=== PATIENT | female | born 1980 ===

== ENCOUNTER 2016-07-28 22:50 | Emergency (ER) | payer MEDICAID ==
[2016-07-28 22:55] VITALS: BMI 20.9
[2016-07-28 22:58] VITALS: TEMP 98.4
--- NOTE | 2016-07-28 23:12 | ED PDOC ---
Arrival/HPI - General Chief Complaint: Seizure Time Seen by Provider: 07/28/16 23:01 Historian: Patient - History of Present Illness Narrative History of Present Illness (Text): 07/28/16 23:12 Adriana Fan is a 35 year old female, whose past medical history includes anxiety, depression, and seizure, who presents to the Emergency department brought in by EMS accompanied by partner status post witnessed seizure tonight. Partner states patient was at home watching videos on the computer when she began shaking, foaming at the mouth, and her eyes rolled back. Patient is unable to recall the incident. Partner notes patient may be withdrawing from Klonopin, states patient has been taking Klonopin regularly for 10 years and has not had any in 4 days. Patient denies any chest pain, shortness of breath, headache, dizziness, fever, chills, abdominal pain, nausea, vomiting, diarrhea, head trauma, or any other complaints. Time/Duration: Other (tonight) Symptom Onset: Sudden Symptom Course: Unchanged Activities at Onset: Rest, Light Context: Home Past Medical History - Provider Review Nursing Documentation Reviewed: Yes - Neurological Hx Seizures: Yes - Psychiatric Hx Substance Use: No - Anesthesia Hx Anesthesia: No Hx Anesthesia Reactions: No Hx Malignant Hyperthermia: No Family/Social History - Physician Review Nursing Documentation Reviewed: Yes Family/Social History: No Known Family HX Smoking Status: Heavy Smoker > 10 Cigarettes Daily Hx Alcohol Use: No Hx Substance Use: No Allergies/Home Meds Allergies/Adverse Reactions: Allergies soy Adverse Reaction (Verified 07/28/16 22:58) ANGIOEDEMA Review of Systems - Physician Review All systems were reviewed & negative as marked: Yes - Review of Systems Constitutional: Normal. absent: Fevers Eyes: Normal ENT: Normal Respiratory: Normal. absent: SOB, Cough Cardiovascular: Normal. absent: Chest Pain Gastrointestinal: Normal. absent: Abdominal Pain, Diarrhea, Nausea, Vomiting Genitourinary Female: Normal. absent: Dysuria, Frequency, Hematuria, Urine Output Changes Musculoskeletal: Normal. absent: Back Pain, Neck Pain Skin: Normal. absent: Rash Neurological: Seizure. absent: Headache, Dizziness Endocrine: Normal Hemo/Lymphatic: Normal Psychiatric: Normal Physical Exam Vital Signs Reviewed: Yes Vital Signs Temp Pulse Resp BP Pulse Ox 07/29/16 02:47 79 16 120/67 100 07/29/16 00:34 74 16 99 07/28/16 22:55 98.4 F 93 H 17 139/96 H 96 Temperature: Afebrile Blood Pressure: Normal Pulse: Regular Respiratory Rate: Normal Appearance: Positive for: Well-Appearing, Non-Toxic, Comfortable Pain Distress: None Mental Status: Positive for: Alert and Oriented X 3 - Systems Exam Head: Present: Atraumatic, Normocephalic Pupils: Present: PERRL Extroacular Muscles: Present: EOMI Conjunctiva: Present: Normal Mouth: Present: Moist Mucous Membranes Neck: Present: Normal Range of Motion Respiratory/Chest: Present: Clear to Auscultation, Good Air Exchange. No: Respiratory Distress, Accessory Muscle Use Cardiovascular: Present: Regular Rate and Rhythm, Normal S1, S2. No: Murmurs Abdomen: Present: Normal Bowel Sounds. No: Tenderness, Distention, Peritoneal Signs Back: Present: Normal Inspection Upper Extremity: Present: Normal Inspection. No: Cyanosis, Edema Lower Extremity: Present: Normal Inspection. No: Edema Neurological: Present: GCS=15, CN II-XII Intact, Speech Normal, Motor Func Grossly Intact, Normal Sensory Function, Normal Cerebellar Funct, Memory Normal Skin: Present: Warm, Dry, Normal Color. No: Rashes Psychiatric: Present: Alert, Oriented x 3, Normal Insight, Normal Concentration Medical Decision Making ED Course and Treatment: 07/28/16 23:12 Impression: 35 year old female presents s/p seizure tonight. Differential Diagnosis include but are not limited to: seizure Plan: -- CT Head w/o contrast -- EKG -- Labs -- Ativan -- Reassess and disposition Progress Notes: 07/29/16 00:33 Reviewed EKG, NSR at 64 bpm. Incomplete RBBB. 07/29/16 02:04 Reviewed radiology, CT Head shows: Atrophy is substantially greater than typical for age, clinical correlation. No abnormality suspicious for acute stroke and no mass lesion by noncontrast head CT. If there is clinical suspicion for stroke or mass lesion or other type of seizure focus, please note that other modalities are considered to be more sensitive than noncontrast head CT 07/29/16 02:34 Discussed results and plan with pt. Pt was offered hospital admission for further evaluation. Pt states she would prefer to follow-up with her own doctor tomorrow morning. Pt will sign out AMA. Patient is choosing to leave against medical advice. I have personally explained to the patient that choosing to do so may result in permanent bodily harm or . I have discussed at great length that without further evaluation and monitoring there may be unforeseen circumstances and/or deterioration causing permanent bodily harm or as a result of their choice. The patient is alert, oriented, and shows the mental capacity to make clear decisions regarding the patients health care at this time. The patient continues to wish to leave against medical advice. The patient has been advised that they should return to the emergency room immediately if they change their mind at any time, or if their condition begins to change or worsen in any way. - Lab Interpretations Lab Results: 07/28/16 23:34 07/28/16 23:34 Lab Results 07/28/16 23:34: WBC 8.7, RBC 4.35, Hgb 14.6, Hct 41.4, MCV 95.2, MCH 33.6, MCHC 35.3, RDW 13.2, Plt Count 250, MPV 10.2, Sodium 141, Potassium 3.7, Chloride 105 , Carbon Dioxide 19 L, Anion Gap 21 H, BUN 17, Creatinine 0.8, Est GFR ( Amer) > 60, Est GFR (Non-Af Amer) > 60, Random Glucose 113 H, Calcium 9.6, Total Bilirubin 0.5, AST 37, ALT 159 H, Alkaline Phosphatase 61, Total Protein 8.2, Albumin 4.7, Globulin 3.5, Albumin/Globulin Ratio 1.3 I have reviewed the lab results: Yes - RAD Interpretation Narrative RAD Interpretations (Text): CT Head shows: Brain: Ventricles appear concordant with sulci. Noting that only axial images are presented, there is no finding to suggest intracranial hemorrhage. Hoffman-white matter differentiation is well-maintained. There is no evidence of mass effect or midline shift. There is atrophy which is greater than typical for age and correlation is recommended. No edema. Ventricles: See above. Bones/joints: No fractures are seen. Soft tissues: Unremarkable. Sinuses: Paranasal sinuses appear clear. Mastoid air cells: Unremarkable as visualized. No mastoid effusion. Other findings: IMPRESSION: Atrophy is substantially greater than typical for age, clinical correlation. No abnormality suspicious for acute stroke and no mass lesion by noncontrast head CT. If there is clinical suspicion for stroke or mass lesion or other type of seizure focus, please note that other modalities are considered to be more sensitive than noncontrast head CT Radiology Orders: 07/29/16 00:33 HEAD W/O CONTRAST [CT] Stat Machine Driller: Radiologist - EKG Interpretation Interpreted by ED Physician: Yes Type: 12 lead EKG - Medication Orders Current Medication Orders: Discontinued Medications Clonazepam (Klonopin) 1 mg PO STAT STA PRN Reason: Protocol Stop: 07/28/16 23:47 Last Admin: 07/29/16 00:43 Dose: 1 MG Behavioural Document 07/29/16 00:43 EKEOO (Rec: 07/29/16 00:44 EKEOO [id number]) Maintenance Maintenance Dose Yes Clonazepam (Klonopin) 1 mg PO STAT STA PRN Reason: Protocol Stop: 07/29/16 02:38 Last Admin: 07/29/16 02:39 Dose: 1 MG Behavioural Document 07/29/16 02:39 EKEOO (Rec: 07/29/16 02:40 EKEOO [id number] ATTEND) Maintenance Maintenance Dose Yes Lorazepam (Ativan) 1 mg IVP ONCE ONE PRN Reason: Protocol Stop: 07/28/16 23:14 Last Admin: 07/28/16 23:27 Dose: 1 MG Behavioural Document 07/28/16 23:27 R (Rec: 07/28/16 23:28 [facility] [id number]) Maintenance Maintenance Dose No Nonmedicinal Nonmedicinal Interventions See nurse's notes Behavior Behavior for Medication: Anxiety IVP Administration Document 07/28/16 23:27 R (Rec: 07/28/16 23:28 R [id number]) Charges for Administration # of IVP Administrations 1 - Scribe Statement The provider has reviewed the documentation as recorded by the Karen Chong Provider Attestation: All medical record entries made by the Karen were at my direction and personally dictated by me. I have reviewed the chart and agree that the record accurately reflects my personal performance of the history, physical exam, medical decision making, and the department course for this patient. I have also personally directed, reviewed, and agree with the discharge instructions and disposition. Disposition/Present on Arrival - Present on Arrival Any Indicators Present on Arrival: No History of DVT/PE: No History of Uncontrolled Diabetes: No Urinary Catheter: No History of Decub. Ulcer: No History Surgical Site Infection Following: None - Disposition Have Diagnosis and Disposition been Completed?: Yes Diagnosis: New onset seizure Disposition: AGAINST MEDICAL ADVICE Disposition Time: 03:00 Condition: STABLE
[2016-07-28 23:52] LABS: HEMATOCRIT 41.4 % (36.0-48.0); MEAN CELL VOLUME 95.2 fL (80.0-105.0); MEAN CORPUSCULAR HEMOGLOBIN 33.6 pg (25.0-35.0); MEAN CORPUSCULAR HGB CONC 35.3 g/dl (31.0-37.0); MEAN PLATELET VOLUME 10.2 fl (7.0-11.0); RED CELL DISTRIBUTION WIDTH 13.2 % (11.5-14.5); WHITE BLOOD COUNT 8.7 10^3/ul (4.5-11.0)
[2016-07-29] LABS: ALB/GLOB RATIO 1.3 (1.1-1.8); ALKALINE PHOSPHATASE 61 U/L (38-133); ALT/SGPT 159 U/L (7-56); AST/SGOT 37 U/L (15-39); BILIRUBIN,TOTAL 0.5 mg/dL (0.2-1.3); BLOOD UREA NITROGEN 17 mg/dL (7-21); CALCIUM 9.6 mg/dL (8.4-10.5); CARBON DIOXIDE 19 mmol/L (21-33); CHLORIDE 105 mmol/L (98-107); GFR AFRICAN-AMERICAN > 60; GLUCOSE,RANDOM 113 mg/dL (70-110); POTASSIUM 3.7 mmol/L (3.6-5.0); SODIUM 141 mmol/L (132-148); TOTAL PROTEIN 8.2 g/dL (5.8-8.3)
[2016-07-29 00:34] VITALS: RESP 16
--- NOTE | 2016-07-29 02:03 | CT ---
EXAM: CT Head Without Intravenous Contrast CLINICAL HISTORY: 35 years old, female; Signs and symptoms; Other: Seizure TECHNIQUE: Axial computed tomography images of the head/brain without intravenous contrast. EXAM DATE/TIME: Exam ordered 07/29/2016 12:33 AM COMPARISON: No relevant prior studies available. FINDINGS: Brain: Ventricles appear concordant with sulci. Noting that only axial images are presented, there is no finding to suggest intracranial hemorrhage. Hoffman-white matter differentiation is well-maintained. There is no evidence of mass effect or midline shift. There is atrophy which is greater than typical for age and correlation is recommended. No edema. Ventricles: See above. Bones/joints: No fractures are seen. Soft tissues: Unremarkable. Sinuses: Paranasal sinuses appear clear. Mastoid air cells: Unremarkable as visualized. No mastoid effusion. Other findings: IMPRESSION: Atrophy is substantially greater than typical for age, clinical correlation. No abnormality suspicious for acute stroke and no mass lesion by noncontrast head CT. If there is clinical suspicion for stroke or mass lesion or other type of seizure focus, please note that other modalities are considered to be more sensitive than noncontrast head CT. If there have been previous studies, comparison is recommended, no previous imaging or previous reports available at time of this dictation.
[2016-07-29 02:47] VITALS: BP 120/67; PULSE 79; O2SAT 100
--- NOTE | 2016-07-29 18:01 | CARD ---
APPROVED REPORT EKG Measurement Heart [id number] RI [id number] <Conclusion> Sinus rhythm with short RI Incomplete right bundle branch block Borderline ECG
== END 2016-07-29 02:55 | disposition left against medical advice (07) ==
LOC: MERGE 22:50 → ED 22:50
DX: R56.9 Unspecified convulsions (principal); F17.210 Nicotine dependence, cigarettes, uncomplicated
CPT/HCPCS: 70450; 80053; 85027; 93005; 96374; 99285; J2060

== ENCOUNTER 2016-08-23 13:02 | Emergency (ER) | payer MEDICAID ==
[2016-08-23 13:02] VITALS: BMI 20.9
--- NOTE | 2016-08-23 13:26 | ED PDOC ---
Arrival/HPI - General Chief Complaint: Finger,Hand,&Wrist Time Seen by Provider: 08/23/16 13:21 Historian: Patient - History of Present Illness Narrative History of Present Illness (Text): 08/23/16 13:22 35 year old female, pmh including seizure, nkda, complaining of rt. hand 1st digit thumb pain x 1 hour. Pt. stated that she was trying to close the trunk door, hyperextended the thumb, been having pain, no numbness or tingling, no dizziness, no night sweat, no other medical or psychological complaints. Past Medical History - Provider Review Nursing Documentation Reviewed: Yes - Cardiac Hx Cardiac Disorders: No Hx Hypertension: Yes - Pulmonary Hx Asthma: Yes - Neurological Hx Seizures: Yes - Renal Hx Renal Disorder: No - Endocrine/Metabolic Hx Endocrine Disorders: No - Hematological/Oncological Hx Blood Disorders: No - Integumentary Hx Dermatological Disorder: No - Musculoskeletal/Rheumatological Hx Musculoskeletal Disorders: No - Gastrointestinal Hx Gastrointestinal Disorders: No - Genitourinary/Gynecological Other/Comment: PCOS - Psychiatric Hx Anxiety: Yes Hx Bipolar Disorder: Yes Hx Depression: Yes Hx Substance Use: No - Surgical History Other/Comment: NECK, R KNEE - Anesthesia Hx Anesthesia: No Hx Anesthesia Reactions: No Hx Malignant Hyperthermia: No Family/Social History - Physician Review Nursing Documentation Reviewed: Yes Family/Social History: Unknown Family HX Smoking Status: Heavy Smoker > 10 Cigarettes Daily Hx Alcohol Use: No Hx Substance Use: No Allergies/Home Meds Allergies/Adverse Reactions: Allergies soy Adverse Reaction (Verified 08/23/16 13:10) ANGIOEDEMA Home Medications: Home Meds Medication Instructions Recorded Confirmed Acetaminophen with Codeine 1 tab PO QID 08/23/16 08/23/16 [Tylenol with Codeine #4 Tablet] Alprazolam [Xanax] 2 mg PO PRN PRN 08/23/16 08/23/16 Biotin 1 tab PO DAILY 08/23/16 08/23/16 Bupropion HCl [Wellbutrin Sr] 300 mg PO DAILY 08/23/16 08/23/16 Cyclobenzaprine [Flexeril] 10 mg PO BID 08/23/16 08/23/16 DULoxetine [Cymbalta] 60 mg PO DAILY 08/23/16 08/23/16 Diclofenac 50 mg PO BID 08/23/16 08/23/16 Gabapentin 600 mg PO TID 08/23/16 08/23/16 Hydrocodone/Acetaminophen [[place] 1 tab PO QID PRN 08/23/16 08/23/16 10-325 Tablet] Megestrol Acetate [Megace] 400 mg PO BID 08/23/16 08/23/16 Metoprolol Succinate [Toprol XL] 25 mg PO DAILY 08/23/16 08/23/16 Multivitamin [Multivitamins] 1 tab PO DAILY 08/23/16 08/23/16 Pantoprazole [Protonix EC Tab] 40 mg PO DAILY 08/23/16 08/23/16 Zolpidem [Ambien] 10 mg PO HS 08/23/16 08/23/16 buPROPion SR [Wellbutrin SR 150 MG] 150 mg PO DAILY 08/23/16 08/23/16 clonazePAM [Klonopin] 1 mg PO BID 08/23/16 08/23/16 hydrOXYzine Pamoate [Vistaril] 25 mg PO BID 08/23/16 08/23/16 lamoTRIgine [Lamictal] 100 mg PO BID 08/23/16 08/23/16 rOPINIRole [Requip] 2 mg PO DAILY 08/23/16 08/23/16 valACYclovir [Valtrex] 500 mg PO DAILY 08/23/16 08/23/16 Review of Systems - Review of Systems Constitutional: absent: Fatigue, Fevers Eyes: absent: Vision Changes ENT: absent: Hearing Changes Respiratory: absent: SOB, Cough, Sputum Cardiovascular: absent: Chest Pain Gastrointestinal: absent: Abdominal Pain, Nausea, Vomiting Musculoskeletal: Arthralgias. absent: Back Pain, Neck Pain, Joint Swelling, Myalgias Physical Exam Vital Signs Reviewed: Yes Vital Signs Temp Pulse Resp BP Pulse Ox 08/23/16 13:11 99.0 F 104 H 20 144/94 H 99 Temperature: Afebrile Blood Pressure: Hypertensive Pulse: Tachycardic Respiratory Rate: Normal Appearance: Positive for: Well-Appearing, Non-Toxic, Comfortable Pain Distress: Mild Mental Status: Positive for: Alert and Oriented X 3 - Systems Exam Head: Present: Atraumatic, Normocephalic Pupils: Present: PERRL Extroacular Muscles: Present: EOMI Conjunctiva: Present: Normal Mouth: Present: Moist Mucous Membranes Neck: Present: Normal Range of Motion Respiratory/Chest: Present: Clear to Auscultation, Good Air Exchange. No: Respiratory Distress, Accessory Muscle Use Cardiovascular: Present: Regular Rate and Rhythm, Normal S1, S2. No: Murmurs Abdomen: Present: Normal Bowel Sounds. No: Tenderness, Distention, Peritoneal Signs Back: Present: Normal Inspection Upper Extremity: Present: Normal Inspection, Other (Rt. hand: +ttp and mild swelling on the 1st MCPJ region with skin intact, no laceration or abrasion, FROM without limitation, sensation intact, motor 5/5, +radial pulse, capillary refill< 2 seconds, neurovascular intact. ). No: Cyanosis, Edema Lower Extremity: Present: Normal Inspection. No: Edema Neurological: Present: GCS=15, CN II-XII Intact, Speech Normal Skin: Present: Warm, Dry, Normal Color. No: Rashes Psychiatric: Present: Alert, Oriented x 3, Normal Insight, Normal Concentration Medical Decision Making ED Course and Treatment: 08/23/16 13:27 -xray -ice pack -observe and reassess 08/23/16 14:10 -xray show no obvious fracture or dislocation, thumb spica splint applied with neurovascular intact, sling given. -Discharge home with thumb spica splint applied, sling given, continue the pain medication at home, follow up with your own pmd and hand specialist within 2 days, return to the ER for any new or worsening signs or symptoms. - RAD Interpretation Radiology Orders: 08/23/16 13:26 HAND RIGHT 3 VIEWS [RAD] Stat no fracture or dislocation Nailing Machine Operator Automatic: Radiologist - PA / CRUDE OIL TREATER / Resident Statement MD/DO has reviewed & agrees with the documentation as recorded. Disposition/Present on Arrival - Present on Arrival Any Indicators Present on Arrival: No History of DVT/PE: No History of Uncontrolled Diabetes: No Urinary Catheter: No History of Decub. Ulcer: No History Surgical Site Infection Following: None - Disposition Have Diagnosis and Disposition been Completed?: Yes Diagnosis: Thumb injury, Thumb pain Disposition: HOME/ ROUTINE Disposition Time: 14:11 Patient Plan: Discharge Patient Problems: Current Active Problems Problem Status Onset Thumb injury Acute Thumb pain Acute Condition: GOOD Additional Instructions: Discharge home with thumb spica splint applied, sling given, continue the pain medication at home, follow up with your own pmd and hand specialist within 2 days, return to the ER for any new or worsening signs or symptoms. Referrals: Pete Aponte MD [Staff Provider] - [place] up with primary [facility] [place] - Follow up with primary Forms: [employer] ([place]), WORK NOTE
[2016-08-23 13:29] VITALS: BP 144/94; PULSE 104; RESP 20; TEMP 99; O2SAT 99
--- NOTE | 2016-08-23 14:50 | RAD ---
PROCEDURE: Right Wrist Radiographs. HISTORY: rt. hand 1st MCPJ injury with hyperextend COMPARISON: None. FINDINGS: BONES: Normal. No fracture. JOINTS: Normal. No dislocation. SOFT TISSUES: Normal. OTHER FINDINGS: None. IMPRESSION: Normal right wrist radiographs.
== END 2016-08-23 15:21 | disposition home or self-care (01) ==
LOC: ED 13:02
DX: M79.644 Pain in right finger(s) (principal); S69.91XA Unspecified injury of right wrist, hand and finger(s), initial encounter; X58.XXXA Exposure to other specified factors, initial encounter

== ENCOUNTER 2016-09-23 18:06 | Emergency (ER) | payer MEDICAID ==
[2016-09-23 18:11] VITALS: TEMP 98.8; BMI 23.6
[2016-09-23] MEDS ORDERED: Sodium Chloride 0.9% 1,000 ML IV STA (18:16)
[2016-09-23 18:24] LABS: ADD MANUAL DIFF? NO
[2016-09-23 18:27] LABS: BASO # 0.08 K/mm3 (0.0-2.0); BASO % 0.7 % (0.0-3.0); EOS # 0.4 (0.0-0.7); EOS % 3.6 % (1.5-5.0); GRAN # 4.29 (1.4-6.5); HEMATOCRIT 43.4 % (36.0-48.0); LYMPH # 5.4 (1.2-3.4); MEAN CELL VOLUME 103.8 fL (80.0-105.0); MEAN CORPUSCULAR HGB CONC 32.7 g/dl (31.0-37.0); MEAN PLATELET VOLUME 9.6 fl (7.0-11.0); MONO # 0.6 (0.1-0.6); MONO % 5.7 % (1.0-6.0); PLATELET COUNT 240 10^3/uL (120.0-450.0); RED CELL DISTRIBUTION WIDTH 13.3 % (11.5-14.5); WHITE BLOOD COUNT 10.7 10^3/ul (4.5-11.0)
--- NOTE | 2016-09-23 18:37 | ED PDOC ---
Arrival/HPI - General Chief Complaint: Seizure Time Seen by Provider: 09/23/16 18:11 Historian: Patient, Other (boyfriend) - History of Present Illness Narrative History of Present Illness (Text): 09/23/16 18:40 A 35 year old female, whose past medical history includes benzodiazepine dependence, bipolar and anxiety, brought to the emergency department by boyfriend because of seizure. RNs in the emergency department witnessed her seizing upon arrival. Patient was postictal upon my evaluation. Boyfriend notes patient hasn't taken medications prescribed by psychiatrist, but today took two Klonopin while in the car and ten minutes after had an episode of seizure. Patient's boyfriend notes was driving to [place] and patient was seeing colors and started twitching on right side. She took 2 clonazepam tablets. Shortly thereafter, she was unable to speak and had generalized clonic activity. He also reports similar to previous seizures in the past 2 months. Patient was given 2 Ativan by nurse upon arrival. Patient is talking and confused and notes a mild headache and nausea. Denies any chest pain, shortness of breath, vomiting or any other complaints at this time. Time/Duration: Prior to Arrival Symptom Onset: Sudden Activities at Onset: Rest Context: Passenger Associated Symptoms (Text): mild headache and slight nausea Past Medical History - Provider Review Nursing Documentation Reviewed: Yes - Cardiac Hx Cardiac Disorders: No Hx Hypertension: Yes - Pulmonary Hx Asthma: Yes - Neurological Hx Seizures: Yes - Renal Hx Renal Disorder: No - Endocrine/Metabolic Hx Endocrine Disorders: No - Hematological/Oncological Hx Blood Disorders: No - Integumentary Hx Dermatological Disorder: No - Musculoskeletal/Rheumatological Hx Musculoskeletal Disorders: No - Gastrointestinal Hx Gastrointestinal Disorders: No - Genitourinary/Gynecological Other/Comment: PCOS - Psychiatric Hx Anxiety: Yes Hx Bipolar Disorder: Yes Hx Depression: Yes Hx Substance Use: No - Surgical History Other/Comment: NECK, R KNEE - Anesthesia Hx Anesthesia: No Hx Anesthesia Reactions: No Hx Malignant Hyperthermia: No Family/Social History - Physician Review Nursing Documentation Reviewed: Yes Family/Social History: No Known Family HX Smoking Status: Heavy Smoker > 10 Cigarettes Daily Hx Alcohol Use: No Hx Substance Use: No Allergies/Home Meds Allergies/Adverse Reactions: Allergies soy Adverse Reaction (Verified 08/23/16 13:10) ANGIOEDEMA Home Medications: Home Meds Medication Instructions Recorded Confirmed Acetaminophen with Codeine 1 tab PO QID 08/23/16 08/23/16 [Tylenol with Codeine #4 Tablet] Alprazolam [Xanax] 2 mg PO PRN PRN 08/23/16 08/23/16 Biotin 1 tab PO DAILY 08/23/16 08/23/16 Bupropion HCl [Wellbutrin Sr] 300 mg PO DAILY 08/23/16 08/23/16 Cyclobenzaprine [Flexeril] 10 mg PO BID 08/23/16 08/23/16 DULoxetine [Cymbalta] 60 mg PO DAILY 08/23/16 08/23/16 Diclofenac 50 mg PO BID 08/23/16 08/23/16 Gabapentin 600 mg PO TID 08/23/16 08/23/16 Hydrocodone/Acetaminophen [[place] 1 tab PO QID PRN 08/23/16 08/23/16 10-325 Tablet] Megestrol Acetate [Megace] 400 mg PO BID 08/23/16 08/23/16 Metoprolol Succinate [Toprol XL] 25 mg PO DAILY 08/23/16 08/23/16 Multivitamin [Multivitamins] 1 tab PO DAILY 08/23/16 08/23/16 Pantoprazole [Protonix EC Tab] 40 mg PO DAILY 08/23/16 08/23/16 Zolpidem [Ambien] 10 mg PO HS 08/23/16 08/23/16 buPROPion SR [Wellbutrin SR 150 MG] 150 mg PO DAILY 08/23/16 08/23/16 clonazePAM [Klonopin] 1 mg PO BID 08/23/16 08/23/16 hydrOXYzine Pamoate [Vistaril] 25 mg PO BID 08/23/16 08/23/16 lamoTRIgine [Lamictal] 100 mg PO BID 08/23/16 08/23/16 rOPINIRole [Requip] 2 mg PO DAILY 08/23/16 08/23/16 valACYclovir [Valtrex] 500 mg PO DAILY 08/23/16 08/23/16 Review of Systems - Physician Review All systems were reviewed & negative as marked: Yes - Review of Systems Respiratory: absent: SOB Cardiovascular: absent: Chest Pain Gastrointestinal: Nausea. absent: Vomiting Neurological: Headache, Seizure Physical Exam Vital Signs Reviewed: Yes Vital Signs Temp Pulse Resp BP Pulse Ox 09/23/16 19:34 114 H 123 H 123/80 100 09/23/16 19:19 108 H 19 126/76 100 09/23/16 18:50 111 H 20 123/66 99 09/23/16 18:10 98.8 F 126 H 20 154/65 H 95 Temperature: Afebrile Blood Pressure: Hypertensive Pulse: Tachycardic Respiratory Rate: Normal Appearance: Positive for: Well-Appearing, Non-Toxic, Comfortable Pain Distress: None Mental Status: Positive for: Confused, other (alert) - Systems Exam Head: Present: Atraumatic, Normocephalic Pupils: Present: PERRL Extroacular Muscles: Present: EOMI Conjunctiva: Present: Normal Mouth: Present: Moist Mucous Membranes Pharnyx: Present: Normal. No: ERYTHEMA, EXUDATE Neck: Present: Normal Range of Motion Respiratory/Chest: Present: Clear to Auscultation, Good Air Exchange. No: Respiratory Distress, Accessory Muscle Use Cardiovascular: Present: Tachycardic. No: Murmurs Abdomen: Present: Normal Bowel Sounds. No: Tenderness, Distention, Peritoneal Signs Back: Present: Normal Inspection Upper Extremity: Present: Normal Inspection. No: Cyanosis, Edema Lower Extremity: Present: Normal Inspection. No: Edema Neurological: Present: GCS=15, CN II-XII Intact, Speech Normal, Motor Func Grossly Intact Skin: Present: Warm, Dry, Normal Color. No: Rashes Psychiatric: Present: Alert, Normal Concentration Medical Decision Making ED Course and Treatment: 09/23/16 18:34 Impression: A 35 year old female presents to emergency department after episode of seizure. Differential: benzo withdrawal vs. epilepsy vs. pseudoseizure Plan: -- labs -- Urinalysis -- Ativan, IV fluids, Zofran -- Reassess and disposition Prior Visits: Notes and results from previous visits were reviewed. Patient reported to the emergency department in July for evaluation of seizure. Patient left emergency department against medical advice. Progress Notes: 09/23/16 20:16 Patient with noted history. Here in the emergency department upon my evaluation was confused and tachycardic, likely post-ictal. Exam with no focalities. Brain CT done 2 months ago was negative. She has never had an EEG before and etiology may be benzo withdrawal (though she says she is on ativan 0.5 mg daily and QUALITY IMPROVEMENT COORDINATOR confirms filled script) vs. epilepsy (has a family history) . Patient will need observation on tele for additional workup for seizures. Case discussed with Dr. Miller who will consult and said to hold on antiepileptics at this time. Case discussed with Dr. Winter for placement on the hospitalist service. - Lab Interpretations Lab Results: 09/23/16 18:10 09/23/16 18:10 Lab Results 09/23/16 19:00: Urine Color Yellow, Urine Appearance Clear, Urine pH 7.0, Ur Specific [place] 1.025, Urine Protein Trace H, Urine Glucose (UA) Negative, Urine Ketones Negative, Urine Blood Negative, Urine Nitrate Negative, Urine Bilirubin Negative, Urine Urobilinogen 0.2, Ur Leukocyte Esterase Negative, Urine RBC 0 - 2, Urine WBC 0 - 2, Ur Epithelial Cells 1 - 3, Urine Bacteria Large, Urine HCG, Qual Negative 09/23/16 19:00: Urine Opiates Screen Positive H, Urine Methadone Screen Negative , Ur Barbiturates Screen Positive H, Ur Phencyclidine Scrn Negative, Ur Amphetamines Screen Negative, U Benzodiazepines Scrn Negative, U Oth Cocaine Metabols Negative, U Cannabinoids Screen Negative 09/23/16 18:10: Alcohol, Quantitative < 10 09/23/16 18:10: Sodium 146, Potassium 4.9, Chloride 108 H, Carbon Dioxide 23, Anion Gap 20, BUN 15, Creatinine 0.8, Est GFR ( Amer) > 60, Est GFR (Non- Af Amer) > 60, Random Glucose 90, Calcium 9.6, Total Bilirubin 0.4, AST 36, ALT 49, Alkaline Phosphatase 53, Total Protein 7.8, Albumin 4.9 H, Globulin 2.9, Albumin/Globulin Ratio 1.7, Lipase 66 09/23/16 18:10: PT 10.8, INR 1.00, APTT 23.7 09/23/16 18:10: WBC 10.7 D, RBC 4.18, Hgb 14.2, Hct 43.4, MCV 103.8, MCH 34.0, MCHC 32.7, RDW 13.3, Plt Count 240, MPV 9.6, Gran % 40.0 L, Lymph % (Auto) 50.0 H, [place] % (Auto) 5.7, Eos % (Auto) 3.6, Baso % (Auto) 0.7, Gran # 4.29, Lymph # 5.4 H, [place] # 0.6, Eos # 0.4, Baso # 0.08 I have reviewed the lab results: Yes - RAD Interpretation Radiology Orders: 09/23/16 19:18 DUPLEX LOWER EXTRM VEIN BILAT [US] Stat - Medication Orders Current Medication Orders: Discontinued Medications Sodium Chloride (Sodium Chloride 0.9%) 1,000 mls @ 999 mls/hr IV .Q1H1M STA Stop: 09/23/16 19:16 Last Admin: 09/23/16 18:26 Dose: 999 mls/hr Lorazepam (Ativan) 2 mg IVP ONCE ONE PRN Reason: Protocol Stop: 09/23/16 18:16 Last Admin: 09/23/16 18:20 Dose: 2 mg Ondansetron HCl (Zofran Inj) 4 mg IVP STAT STA Stop: 09/23/16 18:18 Last Admin: 09/23/16 19:15 Dose: 4 mg - Scribe Statement The provider has reviewed the documentation as recorded by the Karen Serna Provider Scribe Attestation: All medical record entries made by the Robinsonibjenifer were at my direction and personally dictated by me. I have reviewed the chart and agree that the record accurately reflects my personal performance of the history, physical exam, medical decision making, and the department course for this patient. I have also personally directed, reviewed, and agree with the discharge instructions and disposition. Disposition/Present on Arrival - Present on Arrival Any Indicators Present on Arrival: No History of DVT/PE: No History of Uncontrolled Diabetes: No Urinary Catheter: No History of Decub. Ulcer: No History Surgical Site Infection Following: None - Disposition Have Diagnosis and Disposition been Completed?: Yes Diagnosis: Seizure Disposition: HOSPITALIZED Disposition Time: 20:00 Patient Plan: Observation, Telemetry Condition: FAIR
[2016-09-23 18:39] LABS: ALB/GLOB RATIO 1.7 (1.1-1.8); ALKALINE PHOSPHATASE 53 U/L (38-133); ALT/SGPT 49 U/L (7-56); AST/SGOT 36 U/L (15-39); BILIRUBIN,TOTAL 0.4 mg/dL (0.2-1.3); BLOOD UREA NITROGEN 15 mg/dL (7-21); CALCIUM 9.6 mg/dL (8.4-10.5); CARBON DIOXIDE 23 mmol/L (21-33); CHLORIDE 108 mmol/L (98-107); GFR AFRICAN-AMERICAN > 60; GLUCOSE,RANDOM 90 mg/dL (70-110); LIPASE 66 U/L (23-300); POTASSIUM 4.9 mmol/L (3.6-5.0); SODIUM 146 mmol/L (132-148); TOTAL PROTEIN 7.8 g/dL (5.8-8.3)
[2016-09-23 18:45] LABS: PARTIAL THROMBOPLASTIN TIME 23.7 Seconds (23.7-30.8)
[2016-09-23 19:20] VITALS: O2SAT 100
[2016-09-23 19:35] VITALS: BP 123/80; PULSE 114; RESP 123
[2016-09-23 19:46] LABS: URINE BILIRUBIN NEGATIVE (NEGATIVE); URINE BLOOD NEGATIVE (NEGATIVE); URINE GLUCOSE (UA) NEGATIVE (NEGATIVE); URINE KETONE NEGATIVE (NEGATIVE); URINE LEUKOCYTE ESTERASE NEGATIVE Leu/uL (NEGATIVE); URINE PROTEIN TRACE mg/dL (<30 mg/dL); URINE UROBILINOGEN 0.2 E.U./dL (<1 E.U./dL)
[2016-09-23 19:49] LABS: URINE APPEARANCE CLEAR (CLEAR); URINE COLOR YELLOW (YELLOW)
[2016-09-23 20:04] LABS: URINE BACTERIA LARGE (NEG); URINE RBC 0 - 2 /hpf (0-2); URINE WBC 0 - 2 /hpf (0-6)
[2016-09-23] MEDS ORDERED: oxyCODONE 5 mg Immediate Release Tab PO STA (20:15)
--- NOTE | 2016-09-23 21:27 | CP.PCM.HP ---
<Jeremy Yu - Last Filed: 09/23/16 21:24> History of Present Illness - History of Present Illness History of Present Illness: CC: Seizures This is a 35yo P w a PMhx of seizures, bipolar disorder, depression/anxiety, early alzheimers, HTN, herpes genital, chronic pain, RLS, and sleep disorder, GERD who is presenting to the hospital after a witnessed seizure by her boyfriend. She states she has had 5 seizures in the past; she will blank out for a period of time and her boyfriend states that she is having tonic clonic seizures. She never remembers the event. The seizure was also witnessed in the ER. She denies tongue biting, urination/defecation, or muscle pain after. The patient is an extremely poor historian, unable to recall her PMD or list of medications, and 3 word recall even directly after was poor, and after 5 min she remembered 0/3 words. She currently denies any fevers/chills, BURNS, CP, SOB, abdominal pain, N/V/D, dysuria/freq/urg, lower extremity pain/swelling, seizures , depression/anxiety or wishes to hurt self or others, or AV hallucinations. Thought process is linear and goal oriented although patient does forget the answers to very simple questions. We offered observation EEG and neuro eval and patient refused. Patient left AMA. All questions were answered and risks and benefits were discussed. PMhx: seizures, bipolar disorder, depression/anxiety, early alzheimers, HTN, herpes genital, chronic pain, RLS, and sleep disorder, GERD Surgeries: Tummy Tuck after having children Allergies: Soy Meds: Tylenol 3, Xanax, Biotin, Wellbutrin, Klonopin, Flexeril, Dicofenac, Cymbalta, Gabapentin, Oxycodone, Hydroxyzine, Megestrol?? Metoprolol, Multivitamin, Protonix, Ropinirole, Valacyclovir, Zolpidem FamHx: patient cannot recall other than grandfather having alzeihemers in 70's A/P Although patient refused Seizures Consult: Megan Miller; appreciate recs Head CT: f/u results Spot EEG Ativan IV PRN for seizures Patient is on multiple drugs that lower seizure threshold; Wellbutrin, Cymbalta, Valacyclovir, Ambien, Cyclobenzaprine, Megestrol?? Patient cannot recall why she is taking many of these medications However patient is already taking Gabapentin 600 PO TID and Lamictal 100mg PO daily ECG showed old incomplete RBBB which is not new; will keep on tele bipolar disorder -c/w home meds depression/anxiety -c/w home meds for now early alzheimers -c/w home meds for now HTN c/w home meds for now herpes genital -c/w home meds for now chronic pain -c/w home meds for now RLS -c/w home meds for now Sleep disorder -c/w home meds for now Proph Protonix PO SCD Heart Healthy Diet Case discussed with Dr. Moy Yu PGY1 Night Float patient signed out AMA Present on Admission - Present on Admission Any Indicators Present on Admission: No History of DVT/PE: No History of Uncontrolled Diabetes: No Urinary Catheter: No Decubitus Ulcer Present: No Past Patient History - Past Social History Smoking Status: Heavy Smoker > 10 Cigarettes Daily - CARDIAC Hx Cardiac Disorders: No Hx Hypertension: Yes - PULMONARY Hx Asthma: Yes - NEUROLOGICAL Hx Seizures: Yes - RENAL Hx Chronic Kidney Disease: No - ENDOCRINE/METABOLIC Hx Endocrine Disorders: No - HEMATOLOGICAL/ONCOLOGICAL Hx Blood Disorders: No - INTEGUMENTARY Hx Dermatological Problems: No - MUSCULOSKELETAL/RHEUMATOLOGICAL Hx Musculoskeletal Disorders: No - GASTROINTESTINAL Hx Gastrointestinal Disorders: No - GENITOURINARY/GYNECOLOGICAL Other/Comment: PCOS - PSYCHIATRIC Hx Anxiety: Yes Hx Bipolar Disorder: Yes Hx Depression: Yes Hx Substance Use: No - SURGICAL HISTORY Other/Comment: NECK, R KNEE - ANESTHESIA Hx Anesthesia: No Hx Anesthesia Reactions: No Hx Malignant Hyperthermia: No Meds Allergies/Adverse Reactions: Allergies Allergy/AdvReac Type Severity Reaction Status Date / Time soy AdvReac ANGIOEDEMA Verified 08/23/16 13:10 Physical Exam - Constitutional Appears: Well - Head Exam Head Exam: ATRAUMATIC - Eye Exam Eye Exam: EOMI Pupil Exam: PERRL - ENT Exam ENT Exam: Mucous Membranes Moist - Neck Exam Neck exam: Positive for: Full Rom. Negative for: Lymphadenopathy - Respiratory Exam Respiratory Exam: Clear to Auscultation Bilateral, NORMAL BREATHING PATTERN. absent: Rales, Rhonchi, Wheezes - Cardiovascular Exam Cardiovascular Exam: REGULAR RHYTHM, +S1, +S2 - GI/Abdominal Exam Additional comments: Scar from tummy tuck, no other surgical scars - Rectal Exam Rectal Exam: Deferred - Extremities Exam Extremities exam: Positive for: full ROM, normal capillary refill, normal inspection, pedal pulses present. Negative for: calf tenderness, joint swelling , pedal edema, tenderness - Back Exam Back exam: NORMAL INSPECTION. absent: CVA tenderness (L), CVA tenderness (R) - Neurological Exam Neurological exam: Alert, CN II-XII Intact, Oriented x3, Reflexes Normal Additional comments: patient had a very poor 3 word recall, struggled to remember simple facts about her medical history during interview, got tearful when she was forgetting things - Psychiatric Exam Psychiatric exam: Normal Affect, Normal Mood - Skin Skin Exam: Warm Results - Vital Signs Recent Vital Signs: Last Vital Signs Temp 98.8 F 09/23/16 18:10 Pulse 114 H 09/23/16 19:34 Resp 123 H 09/23/16 19:34 BP 123/80 09/23/16 19:34 Pulse Ox 100 09/23/16 19:34 - Labs Result Diagrams: 09/23/16 18:10 09/23/16 18:10 Decision To Admit - Pt Status Changed To: Hospital Disposition Of: Observation - . Bed Request Type: Remote Telemetry Admitting Physician: Javier Winter <Javier Winter - Last Filed: 09/23/16 22:20> Results - Vital Signs Recent Vital Signs: Last Vital Signs Temp 98.8 F 09/23/16 18:10 Pulse 114 H 09/23/16 19:34 Resp 123 H 09/23/16 19:34 BP 123/80 09/23/16 19:34 Pulse Ox 100 09/23/16 19:34 - Labs Result Diagrams: 09/23/16 18:10 09/23/16 18:10 Attending/Attestation - Attestation I have personally seen and examined this patient.: Yes I have fully participated in the care of the patient.: Yes I have reviewed all pertinent clinical information: Yes Notes (Text): 09/23/16 22:19 Patient refused to stay in the hospital for an observation; stated she would follow up with her own neurologist and have an EEG done as an outpatient. Signed AMA form; patient was AAOX3, coherent and demonstrated proper insight into her disease process at the time of signing the form.
--- NOTE | 2016-09-24 09:21 | US ---
HISTORY: Leg pain and swelling. Evaluate for DVT PHYSICIAN(S): Osbaldo Lyon MD. TECHNIQUE: Duplex sonography and color-flow Doppler with graded compression were used to evaluate the deep venous systems of both lower extremities. FINDINGS: The visualized deep venous systems of both lower extremities are sonographically normal and compressible. Normal wave forms and augmentation are seen. There is no sonographic evidence for deep venous thrombosis in the visualized segments of both lower extremities. IMPRESSION: No sonographic evidence for deep venous thrombosis in the visualized segments of both lower extremities.
--- NOTE | 2016-09-24 23:24 | CARD ---
APPROVED REPORT EKG Measurement Heart [id number] <Conclusion> Sinus tachycardia Incomplete right bundle branch block Borderline ECG
== END 2016-09-23 21:30 | disposition left against medical advice (07) ==
LOC: ED 18:06 → ERH 20:03 → UNDOADMOB 20:03 → ERH 22:18
DX: R56.9 Unspecified convulsions (principal); F17.210 Nicotine dependence, cigarettes, uncomplicated; I10 Essential (primary) hypertension
CPT/HCPCS: 80053; 80320; 80324; 80345; 80346; 80349; 80353; 80358; 80361; 81001; 83690; 83992; 84703; 85025; 85610; 85730; 93005; 93970; 96361; 96374; 99285; J2060; J2405; J7040

== ENCOUNTER 2016-10-04 16:49 | Emergency (ER) | payer MEDICAID ==
[2016-10-04 17:05] VITALS: BMI 22.2
[2016-10-04 17:09] VITALS: RESP 20
--- NOTE | 2016-10-04 17:49 | ED PDOC ---
Arrival/HPI - General Historian: Patient - History of Present Illness Time/Duration: Prior to Arrival Context: Home - General Chief Complaint: Cough, Cold, Congestion Time Seen by Provider: 10/04/16 17:10 - History of Present Illness Narrative History of Present Illness (Text): 10/04/16 17:49 35 yo female with PMH of asthma, PCOS, HTN, seizures presents to ED with cough and fever. Patient states that the symptoms, including runny nose started yesterday. She states her cough is productive with green sputum. She denies any sick contacts but states that shes been staying at a homeless correction. She reports some SOB and has been taking her Ventolin inhaler. She states that today she starting having light vaginal bleeding. She states she has not has menstrual period for 21 year due to PCOS and has not followed up with OBGYN. She denies chest pain, headache, n/v, abdominal pain. PMD: [facility] Tripp ([facility]) Past Medical History - Provider Review Nursing Documentation Reviewed: Yes - Cardiac Hx Hypertension: Yes - Pulmonary Hx Asthma: Yes - Neurological Hx Seizures: Yes - Renal Hx Renal Disorder: No - Endocrine/Metabolic Hx Endocrine Disorders: No - Hematological/Oncological Other/Comment: liver problem - Integumentary Hx Dermatological Disorder: No - Musculoskeletal/Rheumatological Hx Musculoskeletal Disorders: No - Gastrointestinal Hx Gastrointestinal Disorders: No - Genitourinary/Gynecological Other/Comment: PCOS - Psychiatric Hx Anxiety: Yes Hx Bipolar Disorder: Yes Hx Depression: Yes Hx Substance Use: No - Surgical History Other/Comment: NECK, R KNEE - Anesthesia Hx Anesthesia: No Hx Anesthesia Reactions: No Hx Malignant Hyperthermia: No Family/Social History - Physician Review Nursing Documentation Reviewed: Yes Family/Social History: No Known Family HX Smoking Status: Former Smoker Hx Alcohol Use: No Hx Substance Use: No Allergies/Home Meds Allergies/Adverse Reactions: Allergies [place] Allergy (Verified 10/04/16 17:06) ANGIOEDEMA soy Adverse Reaction (Verified 08/23/16 13:10) ANGIOEDEMA nectarines Allergy (Uncoded 10/04/16 17:06) ANGIOEDEMA Home Medications: Home Meds Medication Instructions Recorded Confirmed Bupropion HCl [Wellbutrin Sr] 300 mg PO DAILY 08/23/16 10/04/16 Cyclobenzaprine [Flexeril] 10 mg PO BID 08/23/16 10/04/16 DULoxetine [Cymbalta] 60 mg PO DAILY 08/23/16 10/04/16 Diclofenac 50 mg PO BID 08/23/16 10/04/16 Gabapentin 600 mg PO TID 08/23/16 10/04/16 Metoprolol Succinate [Toprol XL] 25 mg PO DAILY 08/23/16 10/04/16 Pantoprazole [Protonix EC Tab] 40 mg PO DAILY 08/23/16 10/04/16 buPROPion SR [Wellbutrin SR 150 MG] 150 mg PO HS 08/23/16 10/04/16 hydrOXYzine Pamoate [Vistaril] 50 mg PO QID 08/23/16 10/04/16 lamoTRIgine [Lamictal] 100 mg PO BID 08/23/16 10/04/16 rOPINIRole [Requip] 2 mg PO DAILY 08/23/16 10/04/16 valACYclovir [Valtrex] 500 mg PO DAILY 08/23/16 10/04/16 Codeine 60 mg PO BID 10/04/16 10/04/16 Codeine/Butalbital/ASA/Caffein 1 tab PO BID 10/04/16 10/04/16 [Fiorinal with Codeine #3 Cap] Hydrocodone/Acetaminophen [[place] 1 tab PO BID 10/04/16 10/04/16 10-325 Tablet] LORazepam [Ativan] 0.5 mg PO QID 10/04/16 10/04/16 QUEtiapine [SEROquel] 50 mg PO HS 10/04/16 10/04/16 Topiramate [Topamax] 25 mg PO BID 10/04/16 10/04/16 Zolpidem [Ambien] 10 mg PO HS 10/04/16 10/04/16 Review of Systems - Review of Systems Constitutional: Fevers. absent: Fatigue Eyes: Normal. absent: Vision Changes ENT: Rhinorrhea, Sinus Congestion. absent: Sore Throat Respiratory: SOB, Cough, Sputum, Wheezing Cardiovascular: Normal. absent: Chest Pain, Palpitations Gastrointestinal: Normal, Diarrhea. absent: Abdominal Pain, Constipation, Nausea, Vomiting Genitourinary Female: Normal. absent: Dysuria, Frequency Musculoskeletal: Normal. absent: Arthralgias, Back Pain, Myalgias Skin: Normal. absent: Rash, Pruritis, Laceration Neurological: Normal. absent: Headache, Dizziness Endocrine: Normal. absent: Diaphoresis Hemo/Lymphatic: Normal. absent: Easy Bleeding Psychiatric: Normal Physical Exam - Systems Exam Head: Present: Atraumatic, Normocephalic Pupils: Present: PERRL. No: Non-Reactive Extroacular Muscles: Present: EOMI. No: Entrapment Conjunctiva: Present: Normal Mouth: Present: Moist Mucous Membranes Pharnyx: Present: Normal. No: ERYTHEMA, EXUDATE, TONSILS ENLARGED, Peritonsilar Swelling, Uvular Deviation Nose (External): Present: Atraumatic Neck: Present: Normal Range of Motion Respiratory/Chest: Present: Wheezes (mild). No: Respiratory Distress, Accessory Muscle Use, Rales, Rhonchi, Tachypneic Cardiovascular: Present: Regular Rate and Rhythm, Normal S1, S2. No: Murmurs, Tachycardic, Bradycardic Abdomen: Present: Normal Bowel Sounds. No: Tenderness, Distention, Peritoneal Signs Back: Present: Normal Inspection Upper Extremity: Present: Normal Inspection. No: Cyanosis, Edema, Tenderness, Swelling Lower Extremity: Present: Normal Inspection. No: Edema, CALF TENDERNESS Neurological: Present: GCS=15, CN II-XII Intact, Speech Normal Skin: Present: Warm, Dry, Normal Color. No: Rashes Psychiatric: Present: Alert, Oriented x 3, Normal Insight, Normal Concentration Vital Signs Temp Pulse Resp BP Pulse Ox 10/04/16 18:34 98.5 F 99 H 20 124/53 L 98 10/04/16 17:07 98.9 F 117 H 20 113/70 96 Medical Decision Making ED Course and Treatment: Patient seen and examined with resident. Came up with treatment and disposition plan with resident. (Pete Cotter) 10/04/16 18:36 Impression: 35 yo female with PMH of asthma, PCOS, HTN, seizures presents to ED with cough and fever. Differential Diagnosis included but are not limited to: - upper respiratory infection Plan: - dima rosa - proair -- Reassess and disposition Progress Notes: - patient is PERC negative - patient is stable to discharge home. She is to follow up with PMD in 1-2 days and follow with obgyn. Discharge plan discussed with patient she is in agreement. All questions answered. (Elizabeth Mccormick) Disposition/Present on Arrival - Present on Arrival Any Indicators Present on Arrival: No History of DVT/PE: No History of Uncontrolled Diabetes: No Urinary Catheter: No History of Decub. Ulcer: No History Surgical Site Infection Following: None - Disposition Have Diagnosis and Disposition been Completed?: Yes Disposition Time: 18:30 Patient Plan: Discharge - Disposition Diagnosis: Upper respiratory infection Disposition: HOME/ ROUTINE Condition: GOOD Discharge Instructions (ExitCare): Upper Respiratory Infection (ED) Additional Instructions: Zulma Fan, thank you for letting us take care of you today. Your provider was Dr. Mccormick and Dr. Cotter. You were treated for upper respiratory infection. The emergency medical care you received today was directed at your acute symptoms. If you were prescribed any medication, please fill it and take as directed. It may take several days for your symptoms to resolve. Return to the Emergency Department if your symptoms worsen, do not improve, or if you have any other problems. Please contact your doctor or call one of the physicians/clinics you have been referred to that are listed on the Patient Visit Information form that is included in your discharge packet. Bring any paperwork you were given at discharge with you along with any medications you are taking to your follow up visit. Our treatment cannot replace ongoing medical care by a primary care provider (PCP) outside of the emergency department. Thank you for allowing the [facility] team to be part of your care today. Prescriptions: Albuterol Sulfate [Proair Hfa] 0.09 mg IH Q4 PRN #1 inh PRN Reason: Shortness Of Breath Azithromycin [Z-Benjamin] 250 mg PO DAILY #6 tab Benzonatate [Tessalon Perle] 100 mg PO TID #15 capsule Prednisone 60 mg PO DAILY #4 tablet Referrals: Guanako Goyal MD [Staff Provider] - Follow up with primary Alea Tripp DO [Primary Care Provider] - Follow up with primary
[2016-10-04 18:36] VITALS: BP 124/53; PULSE 99; TEMP 98.5; O2SAT 98
== END 2016-10-04 18:39 | disposition home or self-care (01) ==
LOC: ED 16:49
DX: J06.9 Acute upper respiratory infection, unspecified (principal); I10 Essential (primary) hypertension